=== PATIENT | female | born 1995 | race Caucasian/White ===

== ENCOUNTER 2017-02-11 19:36 | Emergency (ER) | payer BC ==
[~2017-02-11] VITALS: Ht 154.9 cm; Wt 41.4 kg
--- OUTSIDE RECORDS SUMMARY | 2017-02-11 19:39 | XMS REPORT ---
Author Lilia Goldberg Organization [employer] Address Unknown Phone Unavailable Care Team Providers Care Division Service Manager Name Role Phone Lilia Tanner CP Unavailable Allergies, Adverse Reactions, Alerts Substance Reaction Event Type N.K.D.A. Info Not Available Non Drug Allergy Problems Problem Type Condition Code Onset Dates Condition Status Assessment Encounter for other general counseling and advice on contraception Z30.09 Active Medications No Known Medications Procedures Procedure Coding System Code Date Office visit estab lev 3 CPT-4 32246 April 01, 2016 Vital Signs Date/Time: April 01, 2016 BMI 16.76 Index Height 63 in Weight 94.6 lbs Blood Pressure Diastolic 60 mm Hg Blood Pressure Systolic 102 mm Hg Results No Known Results Summary Purpose [employer] Submission
--- OUTSIDE RECORDS SUMMARY | 2017-02-11 19:39 | XMS REPORT ---
Author Author Lilia Tanner Organization [employer] Address Unknown Phone Unavailable Care Team Providers Care Automotive Window Tinter Name Role Phone Lilia Tanner CP Unavailable Allergies No Known Allergies Problems No Known Problems Medications No Known Medications Results No Known Results Summary Purpose [employer] Submission
--- OUTSIDE RECORDS SUMMARY | 2017-02-11 19:39 | XMS REPORT | Referral Summary ---
Author Author [facility] Organization [facility] Address Unknown Phone Unavailable Care Team Providers Care Record Changer Name Role Phone No PCP, States Primary Care Physician [phone] Encounter Date(s): 07/17/15 - 07/17/15 [facility] [address] [place] [address] [place] [id number] Discharge Diagnosis: Headache, variant migraine Discharge Diagnosis: Syncope Discharge Disposition: 01-Home or Self Care Attending Physician: David Puente MD Admitting Physician: David Puente MD Vital Signs Most recent to 1 oldest [Reference Range]: Temperature Tympanic 37 degC [36.6-38.1 degC] (07/17/15 3:26 PM) Peripheral Pulse 82 bpm Rate [60-100 bpm] (07/17/15 3:26 PM) Blood Pressure 100/68 mmHg [90-140/60-90 mmHg] (07/17/15 3:26 PM) SpO2 99 % (07/17/15 3:26 PM) Problem List Condition Effective Dates Status Health Status Informant Acute Active bronchitis(Confirmed ) Acute URI(Confirmed) Active Asthma(Confirmed)1 Active Intrinsic asthma 1998 Active without status asthmaticus(Confirme d)2 Nocturnal Active enuresis(Confirmed) 1outgrown by 3 2Hosp; [facility] [place]hma Allergies, Adverse Reactions, Alerts No Known Allergies Medications Abreva 10% topical cream basilia, Topical, 5x/Day, 0 Refill(s) Start Date: 01/09/16 Status: Ordered Benadryl Allergy mg, Oral, TID, 0 Refill(s) Start Date: 01/09/16 Status: Ordered benzalkonium chloride-lidocaine 0.13%-2.5% topical liquid basilia, Topical, BID, 0 Refill(s) Start Date: 01/09/16 Status: Ordered Results Hematology Most recent to 1 oldest [Reference Range]: WBC [5.0-10.0 10.0 10*3/uL 10*3/uL] (07/17/15 4:55 PM) RBC [3.70-5.20] 4.10 (07/17/15 4:55 PM) Hgb [12.0-16.0 12.6 gm/dL gm/dL] (07/17/15 4:55 PM) Hct [37.0-47.0 %] 35.5 % *LOW* (07/17/15 4:55 PM) MCV [80.0-96.0 fL] 86.6 fL (07/17/15 4:55 PM) MCH [26.0-34.0 pg] 30.7 pg (07/17/15 4:55 PM) MCHC [32.0-36.0 35.5 gm/dL gm/dL] (07/17/15 4:55 PM) RDW [0.0-14.5 %] 11.9 % (07/17/15 4:55 PM) Platelet [150-400 256 10*3/uL 10*3/uL] (07/17/15 4:55 PM) MPV [8.8-14.8 fL] 10.7 fL (07/17/15 4:55 PM) Neutrophils [50-70 67 % %] (07/17/15 4:55 PM) Lymphocytes [20-40 26 % %] (07/17/15 4:55 PM) Monocytes [4-8 %] 7 % (07/17/15 4:55 PM) Eosinophils [0-6 %] 0 % (07/17/15 4:55 PM) Basophils [0-2 %] 0 % (07/17/15 4:55 PM) Neutro Absolute 6.74 10*3 [2.50-7.00 10*3] (07/17/15 4:55 PM) Lymph Absolute 2.58 10*3 [1.00-4.00 10*3] (07/17/15 4:55 PM) [place] Absolute 0.67 10*3 [0.20-0.80 10*3] (07/17/15 4:55 PM) Eos Absolute 0.04 10*3 [0.00-0.60 10*3] (07/17/15 4:55 PM) Baso Absolute 0.01 [0.00-0.30] (07/17/15 4:55 PM) Immunizations Vaccine Date Refusal Reason tetanus/diphth/pertuss (Tdap) adult/adol 05/08/11 diphtheria/pertussis, acel/tetanus ped 05/16/02 diphtheria/pertussis, acel/tetanus ped 11/07/98 haemophilus b conjugate (HbOC) vaccine 11/07/98 hepatitis A pediatric vaccine 05/01/08 human papillomavirus vaccine 05/01/08 human papillomavirus vaccine 08/25/07 human papillomavirus vaccine 05/13/07 measles/mumps/rubella virus vaccine 05/16/02 measles/mumps/rubella virus vaccine 08/15/98 meningococcal conjugate vaccine 05/08/11 poliovirus vaccine, inactivated 05/16/02 poliovirus vaccine, inactivated 08/15/98 varicella virus vaccine 05/01/08 varicella virus vaccine 05/16/02 Procedures Procedure Date Related Diagnosis Body Site Collection of venous blood by venipuncture 07/17/15 Collection of venous blood by venipuncture 07/17/15 Collection of venous blood by venipuncture 07/17/15 Social History Social History Type Response Smoking Status Never smoker Assessment and Plan Extracted from: Title: Office Visit Note Author: David Puente MD Date: 07/17/15 Assessment/Plan Headache, variant migraine It is not clear whether her syncopal episode had anything to do with her headache. She fell and hit her head at the time of the syncopal episode. Noncontrast brain CT will be scheduled. Syncope Her description suggests vasovagal syncope. EKG was obtained and shows sinus arrhythmia. Further evaluation would depend on whether she has additional episodes of syncope. Ordered: EKG with Interpretation [id number]
--- OUTSIDE RECORDS SUMMARY | 2017-02-11 19:39 | XMS REPORT | Referral Summary ---
Author Author [facility], [facility] Care Organization [facility] Address Unknown Phone Unavailable Care Team Providers Care Hand Former Name Role Phone Maeve Loaiza Primary Care Physician [phone] Encounter Date(s): 03/24/15 - 03/24/15 [facility], [address] [place] [id number] Discharge Diagnosis: Acute URI Discharge Diagnosis: Sore throat Discharge Diagnosis: Chest pain Discharge Diagnosis: Cough Discharge Diagnosis: Leukocytosis Discharge Disposition: -Home or Self Care Attending Physician: Jaye Jansen MD Admitting Physician: Jaye Jansen MD Vital Signs Most recent to 1 oldest [Reference Range]: Temperature Tympanic 38.4 degC [36.6-38.1 degC] *HI* (03/24/15 10:30 AM) Peripheral Pulse 131 bpm Rate [55-90 bpm] *HI* (03/24/15 10:30 AM) Blood Pressure 100/60 mmHg [90-138/45-84 mmHg] (03/24/15 10:30 AM) SpO2 97 % (03/24/15 10:30 AM) Problem List Condition Effective Dates Status Health Status Informant Acute Active bronchitis(Confirmed ) Acute URI(Confirmed) Active Allergies, Adverse Reactions, Alerts No Known Allergies Medications No Known Medications Results No data available for this section Immunizations Vaccine Date Refusal Reason diphtheria/pertussis, acel/tetanus ped 05/16/02 diphtheria/pertussis, acel/tetanus ped 11/07/98 haemophilus b conjugate (HbOC) vaccine 11/07/98 hepatitis A pediatric vaccine 05/01/08 human papillomavirus vaccine 05/01/08 human papillomavirus vaccine 08/25/07 human papillomavirus vaccine 05/13/07 measles/mumps/rubella virus vaccine 05/16/02 measles/mumps/rubella virus vaccine 08/15/98 meningococcal conjugate vaccine 05/08/11 poliovirus vaccine, inactivated 05/16/02 poliovirus vaccine, inactivated 08/15/98 varicella virus vaccine 05/01/08 varicella virus vaccine 05/16/02 Procedures No data available for this section Social History Social History Type Response Smoking Status Never smoker Assessment and Plan Extracted from: Title: Ambulatory Patient Education Author: Jaye Jansen MD Date: 03/24/15 Family Medicine Leukocytosis Leukocytosis means you have more white blood cells than normal. White blood cells are made in your bone marrow. The main job of white blood cells is to fight infection. Having too many white blood cells is a common condition. It can develop as a result of many types of medical problems. CAUSES In some cases, your bone marrow may be normal, but it is still making too many white blood cells. This could be the result of: Infection. Injury. Physical stress. Emotional stress. Surgery. Allergic reactions. Tumors that do not start in the blood or bone marrow. An inherited disease. Certain medicines. and labor. In other cases, you may have a bone marrow disorder that is causing your body to make too many white blood cells. Bone marrow disorders include: Leukemia. This is a type of blood cancer. Myeloproliferative disorders. These disorders cause blood cells to grow abnormally. SYMPTOMS Some people have no symptoms. Others have symptoms due to the medical problem that is causing their leukocytosis. These symptoms may include: Bleeding. Bruising. Fever. Night sweats. Repeated infections. Weakness. Weight loss. DIAGNOSIS Leukocytosis is often found during blood tests that are done as part of a normal physical exam. Your caregiver will probably order other tests to help determine why you have too many white blood cells. These tests may include: A complete blood count (CBC). This test measures all the types of blood cells in your body. Chest X-rays, urine tests (urinalysis ), or other tests to look for signs of infection. Bone marrow aspiration. For this test, a needle is put into your bone. Cells from the bone marrow are removed through the needle. The cells are then examined under a microscope. TREATMENT Treatment is usually not needed for leukocytosis. However, if a disorder is causing your leukocytosis, it will need to be treated. Treatment may include: Antibiotic medicines if you have a bacterial infection. Bone marrow transplant. Your diseased bone marrow is replaced with healthy cells that will grow new bone marrow. Chemotherapy. This is the use of drugs to kill cancer cells. HOME CARE INSTRUCTIONS Only take bltk-igi-fmsojil or prescription medicines as directed by your caregiver. Maintain a healthy weight. Ask your caregiver what weight is best for you. Eat foods that are low in saturated fats and high in fiber. Eat plenty of fruits and vegetables. Drink enough fluids to keep your urine clear or pale yellow. Get 30 minutes of exercise at least 5 times a week. Check with your caregiver before starting a new exercise routine. Limit caffeine and alcohol. Do not smoke. Keep all follow-up appointments as directed by your caregiver. SEEK MEDICAL CARE IF: You feel weak or more tired than usual. You develop chills, a cough, or nasal congestion. You lose weight without trying. You have night sweats. You bruise easily. SEEK IMMEDIATE MEDICAL CARE IF: You bleed more than normal. You have chest pain. You have trouble breathing. You have a fever. You have uncontrolled nausea or vomiting. You feel dizzy or lightheaded. MAKE SURE YOU: Understand these instructions. Will watch your condition. Will get help right away if you are not doing well or get worse. Document Released: 09/09/2012 Document Revised: 12/13/2012 Document Reviewed: [facility] Patient Information 2014 The 5th Quarter. No follow up information was provided. Extracted from: Title: Office Visit Note Author: Jaye Jansen MD Date: 03/24/15 Assessment/Plan Acute URI Chest pain Cough Leukocytosis Sore throat Orders: cefdinir, 300 mg 1 caps, Oral, q12hr, X 10 days, # 20 caps, 0 Refill(s ), Pharmacy: [facility], 1 caps Oral q12hr,x10 days
--- OUTSIDE RECORDS SUMMARY | 2017-02-11 19:40 | XMS REPORT | Referral Summary ---
Author Author [facility] Organization [facility] Address Unknown Phone Unavailable Care Team Providers Care Director Of Analytics Name Role Phone Maeve Loaiza Primary Care Physician [phone] Encounter VC Date(s): 05/23/15 - 05/23/15 [facility], [address] [place] [id number] Discharge Disposition: 01-Home or Self Care Attending Physician: Pierre Gibson MD Admitting Physician: Pierre Gibson MD Vital Signs Most recent to 1 oldest [Reference Range]: Temperature Tympanic 37.0 degC [36.6-38.1 degC] (05/23/15 5:40 PM) Apical Heart Rate 62 bpm [60-100 bpm] (05/23/15 5:40 PM) Blood Pressure 102/64 mmHg [90-140/60-90 mmHg] (05/23/15 5:40 PM) SpO2 98 % (05/23/15 5:40 PM) Problem List Condition Effective Dates Status [...] Extracted from: Title: Ambulatory Patient Education Author: Pierre Gibson MD Date: Allergy Sore Throat A sore throat is pain, burning, irritation, or scratchiness of the throat. There is often pain or tenderness when swallowing or talking. A sore throat may be accompanied by other symptoms, such as coughing, sneezing, fever, and swollen neck glands. A sore throat is often the first sign of another sickness, such as a cold, flu, strep throat, or mononucleosis (commonly known as mono). Most sore throats go away without medical treatment. CAUSES The most common causes of a sore throat include: A viral infection, such as a cold, flu, or mono. A bacterial infection, such as strep throat, tonsillitis, or whooping cough. Seasonal allergies. Dryness in the air. Irritants, such as smoke or pollution. Gastroesophageal reflux disease (GERD). HOME CARE INSTRUCTIONS Only take rqmb-rkt-glkiwiy medicines as directed by your caregiver. Drink enough fluids to keep your urine clear or pale yellow. Rest as needed. Try using throat sprays, lozenges, or sucking on hard candy to ease any pain (if older than 4 years or as directed). Sip warm liquids, such as broth, herbal tea, or warm water with honey to relieve pain temporarily. You may also eat or drink cold or frozen liquids such as frozen ice pops. Gargle with salt water (mix 1 tsp salt with 8 oz of water). Do not smoke and avoid secondhand smoke. Put a cool-mist humidifier in your bedroom at night to moisten the air. You can also turn on a hot shower and sit in the bathroom with the door closed for 510 minutes. SEEK IMMEDIATE MEDICAL CARE IF: You have difficulty breathing. You are unable to swallow fluids, soft foods, or your saliva. You have increased swelling in the throat. Your sore throat does not get better in 7 days. You have nausea and vomiting. You have a fever or persistent symptoms for more than 23 days. You have a fever and your symptoms suddenly get worse. MAKE SURE YOU: Understand these instructions. Will watch your condition. Will get help right away if you are not doing well or get worse. Document Released: 10/29/2005 Document Revised: 09/07/2013 Document Reviewed: ExitCare Patient Information 2015 [facility]. This information is not intended to replace advice given to you by your health care provider. Make sure you discuss any questions you have with your health care provider. Sore Throat A sore throat is pain, burning, irritation, or scratchiness of the throat. There is often pain or tenderness when swallowing or talking. A sore throat may be accompanied by other symptoms, such as coughing, sneezing, fever, and swollen neck glands. A sore throat is often the first sign of another sickness, such as a cold, flu, strep throat, or mononucleosis (commonly known as mono). Most sore throats go away without medical treatment. CAUSES The most common causes of a sore throat include: A viral infection, such as a cold, flu, or mono. A bacterial infection, such as strep throat, tonsillitis, or whooping cough. Seasonal allergies. Dryness in the air. Irritants, such as smoke or pollution. Gastroesophageal reflux disease (GERD). HOME CARE INSTRUCTIONS Only take awzw-ssd-ghkhohn medicines as directed by your caregiver. Drink enough fluids to keep your urine clear or pale yellow. Rest as needed. Try using throat sprays, lozenges, or sucking on hard candy to ease any pain (if older than 4 years or as directed). Sip warm liquids, such as broth, herbal tea, or warm water with honey to relieve pain temporarily. You may also eat or drink cold or frozen liquids such as frozen ice pops. Gargle with salt water (mix 1 tsp salt with 8 oz of water). Do not smoke and avoid secondhand smoke. Put a cool-mist humidifier in your bedroom at night to moisten the air. You can also turn on a hot shower and sit in the bathroom with the door closed for 510 minutes. SEEK IMMEDIATE MEDICAL CARE IF: You have difficulty breathing. You are unable to swallow fluids, soft foods, or your saliva. You have increased swelling in the throat. Your sore throat does not get better in 7 days. You have nausea and vomiting. You have a fever or persistent symptoms for more than 23 days. You have a fever and your symptoms suddenly get worse. MAKE SURE YOU: Understand these instructions. Will watch your condition. Will get help right away if you are not doing well or get worse. Document Released: 10/29/2005 Document Revised: 09/07/2013 Document Reviewed: ExitCare Patient Information 2015 [employer]. This information is not intended to replace advice given to you by your health care provider. Make sure you discuss any questions you have with your health care provider. No follow up information was provided. Extracted from: Title: Office Visit Note Author: Pierre Gibson MD Date: 05/23/15 Assessment/Plan Sore throat Trial of a zpack.Monospot offered and declined. Monospot if not improving. A work/school note was offered and deferred by the patient. The patient has family members present who are agreeable with today's plan and have no additional concerns or requests. Mom here.
--- OUTSIDE RECORDS SUMMARY | 2017-02-11 19:40 | XMS REPORT ---
Author Lilia Goldberg Organization [employer] Address Unknown Phone Unavailable Care Team Providers Care Mobile Tester Name Role Phone Lilia Tanner CP Unavailable Allergies No Known Allergies Problems Problem Type Condition Code Onset Dates Condition Status Assessment Encounter for surveillance of other contraceptives Z30.49 Active Medications No Known Medications Procedures Procedure Coding System Code Date Insertion drug implant (Nexplanon) (0 global) CPT-4 17934 April 24, 2016 Vital Signs Date/Time: April 24, 2016 BMI 16.33 Index Height 63 in Weight 92.2 lbs Blood Pressure Diastolic 58 mm Hg Blood Pressure Systolic 98 mm Hg Results No Known Results Summary Purpose [employer]ClinicalWorks Submission
--- OUTSIDE RECORDS SUMMARY | 2017-02-11 19:40 | XMS REPORT | Referral Summary ---
Author Author [facility] Organization [facility] Address Unknown Phone Unavailable Care Team Providers Care Nursery Hand Name Role Phone Maeve Loaiza Primary Care Physician [phone] Encounter Date(s): 07/17/15 - 07/17/15 [facility] [address] [place] [address] [place] [id number] Discharge Diagnosis: Headache, variant migraine Discharge Diagnosis: [...] Reactions, Alerts No Known Allergies Medications No data available for this section Results Hematology Most recent to 1 oldest [...] 2.58 10*3 [1.00-4.00 10*3] (07/17/15 4:55 PM) [place] Absolute 0.67 10*3 [0.20-0.80 10*3] (07/17/15 4:55 PM) Eos Absolute 0.04 10*3 [0.00-0.60 10*3] (07/17/15 4:55 PM) Baso Absolute 0.01 [0.00-0.30] (07/17/15 4:55 PM) Immunizations Vaccine Date Refusal Reason diphtheria/pertussis, acel/tetanus [...] episodes of syncope. Ordered: EKG with Interpretation [id number]
--- OUTSIDE RECORDS SUMMARY | 2017-02-11 19:40 | XMS REPORT | Referral Summary ---
Author Author [facility] Organization [facility] Address Unknown Phone Unavailable Care Team Providers Care Elevator Installer Apprentice Name Role Phone No PCP, States Primary Care Physician [phone] Encounter Date(s): 01/09/16 - 01/09/16 [facility] [address] [place] [id number] Discharge Diagnosis: Discharge Diagnosis: Cold sore Discharge Disposition: 01-Home or Self Care Attending Physician: Emre Marrero MD Admitting Physician: Emre Mrarero MD Vital Signs Most recent to 1 oldest [Reference Range]: Temperature Tympanic 26.8 degC [36.6-38.1 degC] *LOW* (01/09/16 2:52 PM) Peripheral Pulse 100 bpm Rate [60-100 bpm] (01/09/16 2:52 PM) Respiratory Rate 20 br/min [14-20 br/min] (01/09/16 2:52 PM) Blood Pressure 134/100 mmHg [90-140/60-90 mmHg] (01/09/16 2:52 PM) Problem List Condition Effective Dates Status Health Status Informant Acute Active bronchitis(Confirmed ) Acute URI(Confirmed) Active Asthma(Confirmed)1 Active Intrinsic asthma 1997 Active without status asthmaticus(Confirme d)2 Nocturnal Active enuresis(Confirmed) 1outgrown by 3 2Hosp; [facility] [place] Asthma Allergies, Adverse Reactions, Alerts No Known Allergies Medications Abreva 10% topical cream basilia, Topical, 5x/Day, 0 Refill(s) Start Date: 01/09/16 Status: Ordered Benadryl Allergy mg, Oral, TID, 0 Refill(s) Start Date: 01/09/16 Status: Ordered benzalkonium chloride-lidocaine 0.13%-2.5% topical liquid basilia, Topical, BID, 0 Refill(s) Start Date: 01/09/16 Status: Ordered Results No data available for this section Immunizations Vaccine Date Refusal Reason tetanus/diphth/pertuss (Tdap) [...] Extracted from: Title: Office Visit Note Author: Emre Marrero MD Date: 01/09/16 Assessment/Plan Cold sore Continue oral Benadryl and topical treatments as needed. No need for antibiotic or further treatment. Cold packs may be of help. Ordered: Office Visit Level 3 Est [id number] Her blood pressure is elevated today. We called her boat camp operator 's office andarrange for further follow-up. Ordered: Office Visit Level 3 Est [id number]
--- OUTSIDE RECORDS SUMMARY | 2017-02-11 19:40 | XMS REPORT | Continuity of Care Document ---
Author Author [facility] Organization [facility] Address Unknown Phone Unavailable Allergies Active Description Code Type Severity Reaction Onset Reported/Identified Relationship to Patient Clinical Status Yes No Known Allergies No Known Allergies Drug Allergy Unknown N/A 12/04/2015 Medications Problems Date Dx Coded Attending Type Code Diagnosis Diagnosed By 01/09/2016 Byron HARRIS, Marbella Blue O13.3 GESTATIONAL HTN W/O SIGNIFICANT PROTEINURIA , THIRD 01/09/2016 Byron HARRIS, Marbella Blue O32.1XX0 MATERNAL CARE FOR BREECH PRESENTATION, UNSP 01/09/2016 Marbella Matthews MD Z37.0 SINGLE LIVE 01/09/2016 Marbella Matthews MD [id number] 38 WEEKS GESTATION OF Procedures Code Description Performed By Performed On [id number] EXTRACTION OF POC, LOW CERVICAL, OPEN APPROACH Marbella Matthews MD 01/09/2016 Results Test Result Range METABOLIC PANEL, COMPREHN - 12/04/15 01:35 POTASSIUM 3.3 mmol/L 3.5-5.3 EST GFR (MDRD) > 60 mL/min > 59 ANION GAP 12 mmol/L 5-15 EST CrCl (CG) > 60 mL/min > 59 GLUCOSE 112 mg/dL 70-99 CALCIUM 7.9 mg/dL 8.5-10.1 BLOOD UREA NITROGEN 8 mg/dL 7-20 CREATININE 0.6 mg/dL 0.5-1.0 SODIUM 142 mmol/L 135-148 CHLORIDE 107 mmol/L 98-110 AST/SGOT 13 Units/L 10-37 ALT/SGPT 14 Units/L < 66 CARBON DIOXIDE 23 mmol/L 21-32 TOTAL PROTEIN 6.4 gm/dL 6.4-8.2 ALBUMIN 2.7 gm/dL 3.4-5.0 BILI TOTAL 0.6 mg/dL 0.0-1.0 ALKALINE PHOSPHATASE TOTAL 137 IU/L 45- 117 CBC W/DIFF - 12/04/15 01:35 GRANULOCYTE # 13.8 k/cumm 2.0-9.0 LYMPHOCYTE # 0.5 k/cumm 1.0-4.0 LYMPHOCYTE % 3 % 20-30 MEAN CELL HGB 30.8 pg 27.0-33.0 MEAN CELL HGB CONCENTRATION 34.3 g/dL 32.0-37.0 MEAN CELL VOLUME 89.9 fl 80.0-100.0 MONOCYTE # 0.8 k/cumm 0.1-1.0 MONOCYTE % 5 % 4-6 RED BLOOD CELL 3.57 m/cumm 4.00-6.00 RED CELL DISTRIBUTION WIDTH 12.3 % 11.0- 15.6 WHITE BLOOD CELL 15.2 k/cumm 5.0-10.0 HEMOGLOBIN 11.0 gm/dL 12.0-16.0 HEMATOCRIT 32.1 % 37.0-47.0 PLATELET COUNT 276 k/cumm 150-400 MANUAL DIFF(R) - 12/04/15 01:35 BAND % 9 % 0-10 DIFFERENTIAL MANUAL METAMYELOCYTE % 1 % RBC MORPH NORMAL SEGMENTED NEUTROPHIL % 82 % 50-70 TROPONIN I - 12/04/15 08:13 TROPONIN I < 0.02 ng/mL < 0.07 T3 FREE - 12/04/15 08:13 T3 FREE 2.2 pg/mL 2.9-4.7 T4 FREE - 12/04/15 08:13 T4 FREE 1.1 ng/dL 0.8-1.3 THYROID STIM HORMONE (TSH) - 12/04/15 08:13 THYROID STIM HORMONE (TSH) 1.07 uIU/mL 0.46-4.13 MAGNESIUM - 12/04/15 08:13 MAGNESIUM 1.6 mg/dL 1.8-2.4 CBC - 01/09/16 17:30 MEAN CELL HGB 30.4 pg 27.0-33.0 MEAN CELL HGB CONCENTRATION 33.3 g/dL 32.0-37.0 MEAN CELL VOLUME 91.3 fl 80.0-100.0 RED BLOOD CELL 3.35 m/cumm 4.00-6.00 RED CELL DISTRIBUTION WIDTH 12.8 % 11.0- 15.6 WHITE BLOOD CELL 13.2 k/cumm 5.0-10.0 HEMOGLOBIN 10.2 gm/dL 12.0-16.0 HEMATOCRIT 30.6 % 37.0-47.0 PLATELET COUNT 215 k/cumm 150-400 UR PROTEIN/CREATININE RATION - 01/09/16 17:30 UR CREATININE COMMENT RANDOM UR PROTEIN COMMENT RANDOM UR TOTAL PROTEIN LEVEL < 5.0 mg/dL 0.0- 11.9 UR CREATININE LEVEL 7.3 mg/dL 44-467 UR PROTEIN/CREATININE RATIO TEST NOT PERFORMED mg/gm < 200 METABOLIC PANEL, COMPREHN - 01/09/16 17:30 POTASSIUM 2.8 mmol/L 3.5-5.3 EST GFR (MDRD) > 60 mL/min > 59 ANION GAP 8 mmol/L 5-15 EST CrCl (CG) > 60 mL/min > 59 GLUCOSE 92 mg/dL 70-99 CALCIUM 8.3 mg/dL 8.5-10.1 BLOOD UREA NITROGEN 3 mg/dL 7-20 CREATININE 0.5 mg/dL 0.5-1.0 SODIUM 142 mmol/L 135-148 CHLORIDE 109 mmol/L 98-110 AST/SGOT 22 Units/L 10-37 ALT/SGPT 18 Units/L < 66 CARBON DIOXIDE 25 mmol/L 21-32 TOTAL PROTEIN 6.6 gm/dL 6.4-8.2 ALBUMIN 2.7 gm/dL 3.4-5.0 BILI TOTAL 0.3 mg/dL 0.0-1.0 ALKALINE PHOSPHATASE TOTAL 212 IU/L 45- 117 URIC ACID - 01/09/16 17:30 URIC ACID 5.7 mg/dL 2.6-6.0 LACTATE DEHYDROGENASE (LDH/LD) - 01/09/16 17:30 LACTATE DEHYDROGENASE (LDH/LD) 160 Units/L 81-234 CORD VENOUS BLOOD GAS - 01/10/16 11:47 VENOUS CORD BLOOD BASE EXCESS -1.3 meq/L -5.8-0.7 COMMENT VENOUS VENOUS CORD BLOOD HCO3 23.9 meq/L 17.4- 25.4 VENOUS CORD BLOOD PCO2 42 mm Hg 28-57 VENOUS CORD BLOOD PH 7.37 7.23-7.46 VENOUS CORD BLOOD PO2 25 mm Hg 15-42 VENOUS CORD BLOOD O2 SAT 53 % 14-75 CORD ARTERIAL BLOOD GAS - 01/10/16 11:47 ARTERIAL CORD BLD BASE EXCESS -2.4 meq/L -7.6-1.3 COMMENT ARTERIAL ARTERIAL CORD BICARBONATE 24.1 meq/L 16.0 -27.1 ARTERIAL CORD BLOOD PCO2 48 mm Hg 32-69 ARTERIAL CORD BLOOD PH 7.32 7.14-7.40 ARTERIAL CORD BLOOD PO2 20.2 mm Hg 8-33 ARTERIAL CORD BLOOD O2 SAT 35 % 5-59 CBC - 01/10/16 15:08 MEAN CELL HGB 30.3 pg 27.0-33.0 MEAN CELL HGB CONCENTRATION 33.2 g/dL 32.0-37.0 MEAN CELL VOLUME 91.1 fl 80.0-100.0 RED BLOOD CELL 3.27 m/cumm 4.00-6.00 RED CELL DISTRIBUTION WIDTH 12.9 % 11.0- 15.6 WHITE BLOOD CELL 20.6 k/cumm 5.0-10.0 HEMOGLOBIN 9.9 gm/dL 12.0-16.0 HEMATOCRIT 29.8 % 37.0-47.0 PLATELET COUNT 202 k/cumm 150-400 METABOLIC PANEL, COMPREHN - 01/10/16 15:08 POTASSIUM 3.3 mmol/L 3.5-5.3 EST GFR (MDRD) > 60 mL/min > 59 ANION GAP 6 mmol/L 5-15 EST CrCl (CG) > 60 mL/min > 59 GLUCOSE 116 mg/dL 70-99 CALCIUM 7.9 mg/dL 8.5-10.1 BLOOD UREA NITROGEN 2 mg/dL 7-20 CREATININE 0.6 mg/dL 0.5-1.0 SODIUM 147 mmol/L 135-148 CHLORIDE 116 mmol/L 98-110 AST/SGOT 21 Units/L 10-37 ALT/SGPT 14 Units/L < 66 CARBON DIOXIDE 25 mmol/L 21-32 TOTAL PROTEIN 5.5 gm/dL 6.4-8.2 ALBUMIN 2.2 gm/dL 3.4-5.0 BILI TOTAL 0.2 mg/dL 0.0-1.0 ALKALINE PHOSPHATASE TOTAL 190 IU/L 45- 117 URIC ACID - 01/10/16 15:08 URIC ACID 5.8 mg/dL 2.6-6.0 LACTATE DEHYDROGENASE (LDH/LD) - 01/10/16 15:08 LACTATE DEHYDROGENASE (LDH/LD) 231 Units/L 81-234 UR PROTEIN/CREATININE RATION - 01/10/16 19:00 UR CREATININE COMMENT RANDOM UR PROTEIN COMMENT RANDOM UR TOTAL PROTEIN LEVEL < 5.0 mg/dL 0.0- 11.9 UR CREATININE LEVEL < 5.0 mg/dL 44-467 UR PROTEIN/CREATININE RATIO TEST NOT PERFORMED mg/gm < 200 CBC W/DIFF - 01/11/16 06:10 EOSINOPHIL # 0.1 k/cumm 0.1-0.5 EOSINOPHIL % 1 % 2-4 GRANULOCYTE # 14.8 k/cumm 2.0-9.0 GRANULOCYTE % 76 % 50-75 LYMPHOCYTE # 2.7 k/cumm 1.0-4.0 LYMPHOCYTE % 14 % 20-30 MEAN CELL HGB 30.2 pg 27.0-33.0 MEAN CELL HGB CONCENTRATION 33.0 g/dL 32.0-37.0 MEAN CELL VOLUME 91.5 fl 80.0-100.0 MONOCYTE # 1.8 k/cumm 0.1-1.0 MONOCYTE % 9 % 4-6 RED BLOOD CELL 3.31 m/cumm 4.00-6.00 RED CELL DISTRIBUTION WIDTH 13.0 % 11.0- 15.6 WHITE BLOOD CELL 19.6 k/cumm 5.0-10.0 HEMOGLOBIN 10.0 gm/dL 12.0-16.0 HEMATOCRIT 30.3 % 37.0-47.0 PLATELET COUNT 203 k/cumm 150-400 METABOLIC PANEL, COMPREHN - 01/11/16 06:10 POTASSIUM 4.0 mmol/L 3.5-5.3 EST GFR (MDRD) > 60 mL/min > 59 ANION GAP 6 mmol/L 5-15 EST CrCl (CG) > 60 mL/min > 59 GLUCOSE 76 mg/dL 70-99 CALCIUM 7.8 mg/dL 8.5-10.1 BLOOD UREA NITROGEN 3 mg/dL 7-20 CREATININE 0.6 mg/dL 0.5-1.0 SODIUM 139 mmol/L 135-148 CHLORIDE 106 mmol/L 98-110 AST/SGOT 25 Units/L 10-37 ALT/SGPT 13 Units/L < 66 CARBON DIOXIDE 27 mmol/L 21-32 TOTAL PROTEIN 5.5 gm/dL 6.4-8.2 ALBUMIN 2.1 gm/dL 3.4-5.0 BILI TOTAL 0.5 mg/dL 0.0-1.0 ALKALINE PHOSPHATASE TOTAL 194 IU/L 45- 117 URIC ACID - 01/11/16 06:10 URIC ACID 5.4 mg/dL 2.6-6.0 LACTATE DEHYDROGENASE (LDH/LD) - 01/11/16 06:10 LACTATE DEHYDROGENASE (LDH/LD) 247 Units/L 81-234 CREATININE FOR CRCL - 01/11/16 06:10 CREATININE 0.6 mg/dL 0.5-1.0 UR CREATININE CLEARANCE - 01/11/16 18:30 UR CREAT CLEAR JOSÉ LUIS DURATION 24 hrs CREAT CLEARANCE (W/BSA CORREC) 30 mL/minm2 80-125 P'T. HEIGHT FOR CRCL 63 inches CREAT CLEARANCE 26 mL/min 61-166 P'T. WEIGHT FOR CRCL 112 lbs UR CREATININE TOTAL VOLUME 4440 mL UR CREATININE LEVEL < 5.0 mg/dL 44-467 CREAT FOR CRCL 0.6 mg/dL 0.6-1.0 Encounters ACCT No. Visit Date/Time Discharge Status Pt. Type Provider Facility Loc./Unit Complaint [id number] 01/09/2016 19:11:00 2015 13:45:00 DIS Inpatient Byorn HARRIS, [facility] [id number] 12/03/2015 22:56:00 2015 11:47:00 DIS Outpatient Byron HARRIS, [facility]
--- OUTSIDE RECORDS SUMMARY | 2017-02-11 19:40 | XMS REPORT | Referral Summary ---
Author Author [facility] Organization [facility] Address Unknown Phone Unavailable Care Team Providers Care Railroad Carman Name Role Phone Maeve Loaiza Primary Care Physician [phone] Encounter VC Date(s): 09/27/15 - 09/27/15 [facility] [address] [place] [address] Discharge Disposition: 01-Home or Self Care Attending Physician: Marbella Matthews MD Admitting Physician: Marbella Matthews MD Vital Signs No data available for this section Problem List Condition Effective Dates Status Health Status Informant Acute Active bronchitis(Confirmed ) Acute URI(Confirmed) Active Allergies, Adverse Reactions, Alerts No Known Allergies Medications No data available for this section Results No data available for this section [...] Smoking Status Never smoker Assessment and Plan No data available for this section
[2017-02-11 19:45] VITALS: Ht 154.9 cm; Wt 41.4 kg
--- OUTSIDE RECORDS SUMMARY | 2017-02-11 19:59 | XMS REPORT | Continuity of Care Document ---
Author Author [facility] Organization [facility] Address Unknown Phone Unavailable Allergies Active Description [...] Procedures Code Description Performed By Performed On [id number] EXTRACTION OF POC, LOW CERVICAL, OPEN APPROACH [...] Status Pt. Type Provider Facility Loc./Unit Complaint [id number] 01/09/2016 19:11:00 2015 13:45:00 DIS Inpatient Byron HARRIS, [facility] [id number] 12/03/2015 22:56:00 2015 11:47:00 DIS Outpatient Byron HARRIS, [facility]
[2017-02-11] MEDS ORDERED: HYDROMORPHONE 2mg/ml INJECTION IM ONE (20:00)
[2017-02-11] MEDS ORDERED: DEXAMETHASONE 4mg/ml - 1ml INJECTION IM ONE (20:00)
[2017-02-11] MEDS ORDERED: AZIT250T6 PO (20:01)
[2017-02-11] MEDS ORDERED: IBUP-1547 PO (20:01)
[2017-02-11] MEDS ORDERED: IBUP200C5 PO (20:02)
--- NOTE | 2017-02-11 20:07 | ERPDOC ---
Departure Disposition Decision Date: February 11, 2017 Disposition Decision Time: 22:04 Disposition: 01 DISCHARGED HOME, SELF-CARE Impression Impression Impression: Primary Impression: Pharyngitis Pharyngitis/tonsillitis etiology: unspecified etiology Qualified Codes: J02.9 - Acute pharyngitis, unspecified Additional Impression: Tonsillitis Severity: Severe Condition: Improved Seen By: Physician only Referrals: KENIA BROCK DO (Family) Patient Instructions: Pharyngitis (ED) Problems/Meds/Labs Reviewed?: Yes Medications reviewed and manag: Yes Additional Instructions: Continue all your routine medications as prescribed Ibuprofen/Advil 2 tablets every 6 hours Montgomery 5 mg one tablet every 6 hours as needed for pain Follow up care ordered?: Yes Mental Status: Alert Scripts Hydrocodone/Acetaminophen (Montgomery 5-325 Tablet) 5-325 Tablet 1 TAB PO QID Y for PAIN, #30 Prov: CODY FLOOD MD 02/11/17 HPI General Chief Complaint: Throat Pain/Injury Stated Complaint: SORE THROAT,DIFF SWALLOWING Time Seen by Provider: 19:54 Source: patient, family Exam Limitations: no limitations HPI Dental Initial Comments She began having severe sore throat approximately 5 days ago. She was started on amoxicillin, for 2 days, with no relief. She was seen again at immediate care on Thursday, diagnosed with "probable strep throat, although no testing has been done. Patient was changed to azithromycin for the past 3 days without improvement. Patient is now having severe pain to the point that she is having difficulty swallowing tonight, and needs relief. Patient has had enough fluid to urinate at least twice today, and would prefer his medication possible Occurred At: home Onset: Rapid Duration: 1 week Severity: moderate, severe Location: L pharynx, R pharynx Associated Symptoms: hoarseness, trouble swallowing, DENIES: cheek swelling, cough, dental trauma, diarrhea, drooling, dyspnea, facial swelling, fever, fractured tooth, gum laceration, gum swelling, headache, high pitched cry/voice , impacted tooth, loose tooth, nausea, retained foreign body, rhinorrhea, sinus drainage, sinus pain, trouble chewing, vomiting Allergies: Coded Allergies: No Known Allergies (Unverified , 02/11/17) Past History Past Medical History Respiratory: asthma Surgical History Denies Surgeries Social History Smoking Status: Never smoker Does patient use chewing tobac: No Second Hand Exposure: No Substance Use Type: does not use Alcohol Intake: none Record Review Pertinent history updated: Yes Review of Systems Constitutional Constitutional: DENIES: appetite decrease, appetite increase, chills, dizziness , fever, weakness ENMT Ears: DENIES: pain Hearing: DENIES: hearing loss, tinnitus Balance: DENIES: vertigo Mouth/Throat: painful swallowing, sore throat, DENIES: change in swallowing, change in voice, hoarsness Cardiovascular Cardiac: DENIES: chest pain, dyspnea on exertion Rhythm/Rate: DENIES: irregular beat, palpitations, tachycardia Vascular: DENIES: pedal edema Pulmonary Respiratory: DENIES: cough, dyspnea, pleuritic chest pain GI Upper Abdomen: DENIES: dysphagia, heartburn/indigestion, nausea, pain, vomiting Lower Abdomen: DENIES: blood in stool, constipation, diarrhea, pain General: DENIES: burning, dysuria, frequency, pain, urgency Musculoskeletal General: DENIES: cramps, joint pain, joint swelling, pain, weakness Integumentary Skin: DENIES: rash, sores Exam General General Nourishment: well nourished, well developed, appears stated age, thin General Body Habitus: well groomed Vital Signs: RN Vital Signs have been reviewed: Yes [facility] Pharynx: erythema, exudate, swelling, NOT FOUND: cobblestoning, lateral pillar signs, uvular deviation ENMT (brief) ENMT: FOUND: TM clear, TM good light reflex, ear canals clear Neck (brief) Neck Brief: FOUND: adenopathy, trachea midline, NOT FOUND: JVD, carotid bruits , nuchal rigidity, spasm, tenderness, thyromegaly, tracheal deviation Neurologic RN Documented GCS Eye Opening: Verbal: Motor: Total: Progress Results/Orders Orders Procedure Category Date Status Time Dexamethasone Inj PHA 02/11/17 Complete (Decadron) 20:00 Hydromorphone PHA 02/11/17 Complete (Dilaudid) 20:00 Medications Current ED Medications Dexamethasone Sodium Phosphate (Decadron) 8 mg O ONCE IM Last administered on 02/11/17 20:22; Start 02/11/17 at 20:00; Stop 02/11/17 at 20:02; Status DC Hydromorphone HCl (Dilaudid) 1 mg O ONCE IM Last administered on 5/10/17at 20: 25; Start 02/11/17 at 20:00; Stop 02/11/17 at 20:02; Status DC Progress Progress Shared decision making, patient elects intermuscular injections, patient given Dilaudid 1 mg IM, dexamethasone 8 mg IM - Reading by mouth well, is able to take pills, dismissed with Montgomery pack and prescription for pain CODY FLOOD MD February 11, 2017 20:07
--- NOTE | 2017-02-11 21:03 | NUR ---
STATUS PT RESTING CALMLY, EYES CLOSED. PT REPORTS THROAT PAIN 7/10.
--- NOTE | 2017-02-11 21:11 | NUR ---
PO TRIAL PT GIVEN WATER TO DRINK. PT PLACED IN FULLY UPRIGHT POSITION.
[2017-02-11] MEDS ORDERED: HYDR-4246 PO (22:05)
[2017-02-11] MEDS ORDERED: HYDROCODONE/APAP 5/325 (PrePack) SENT HOME ONE (22:15)
[2017-02-11 22:32] VITALS: BP 104/58; PULSE 107; RESP 12; TEMP 98; O2SAT 97
== END 2017-02-11 22:32 | disposition home or self-care (01) ==
LOC: ED 19:36
DX: J02.9 Acute pharyngitis, unspecified (principal)
CPT/HCPCS: 96372; 99283; J1100; J1170